=== PATIENT | male | born 1990 | race Caucasian/White ===

== ENCOUNTER 2020-04-27 15:47 | Emergency (ER) | payer BC, OTHER ==
[~2020-04-27] VITALS: Ht 170.2 cm; Wt 70.8 kg
--- NOTE | 2020-04-27 15:55 | NUR ---
CAME IN FOR LOWER BACK PAIN x 1WEEK S/P LIFTING HEAVY BOX AT WORK. TO ER BED 10, HOOKED TO MONITOR, CHANGED TO [facility]. AWAITING MD MUNOZ
[2020-04-27] MEDS ORDERED: IBUP-1957 PO (16:11)
[2020-04-27] MEDS ORDERED: METH-647 PO (16:11)
--- NOTE | 2020-04-27 16:20 | NUR ---
workers comp provided by patient, filled up by .
--- NOTE | 2020-04-27 16:23 | NUR ---
Patient discharged to home in stable condition. Written and verbal after care instructions given. Patient verbalizes understanding of instruction.
[2020-04-27 16:24] VITALS: BP 130/82
== END 2020-04-27 16:25 | disposition home or self-care (01) ==
LOC: ER 15:56
DX: S29.012A Strain of muscle and tendon of back wall of thorax, initial encounter (principal); X58.XXXA Exposure to other specified factors, initial encounter; Y93.89 Activity, other specified; Y92.89 Other specified places as the place of occurrence of the external cause; Y99.8 Other external cause status

== ENCOUNTER 2020-08-15 18:47 | Emergency (ER) | payer OTHER ==
[~2020-08-15] VITALS: Ht 177.8 cm; Wt 74.8 kg
[~2020-08-15 18:47] MED LIST: IBUP-1957 PO; METH-647 PO
[2020-08-15 18:58] VITALS: BP 132/68
--- NOTE | 2020-08-15 19:02 | NUR ---
The patient presented to ER for c/o sorethroat since friday. Denies chills/fever. Respiration regular and unlabored. Will continue to monitor the patient.
[2020-08-15] MEDS ORDERED: ACET-2605 PO (19:23)
[2020-08-15] MEDS ORDERED: AMOX500T2 PO (19:23)
[2020-08-15] MEDS ORDERED: DEXAMETHASONE SOD PHOSPHATE 10 MG/ML VIAL ONE (19:26)
[2020-08-15] MEDS ORDERED: DEXAMETHASONE SOD PHOSPHATE 4 MG/ML VIAL IM ONE (19:30)
[2020-08-15] MEDS ORDERED: AMOX-430 PO (19:35)
== END 2020-08-15 19:36 | disposition home or self-care (01) ==
LOC: ER 18:50
DX: J03.90 Acute tonsillitis, unspecified (principal); Z79.899 Other long term (current) drug therapy
CPT/HCPCS: 96372; 99283; J1100

== ENCOUNTER 2020-09-04 21:10 | Emergency (ER) | payer OTHER ==
[~2020-09-04] VITALS: Ht 177.8 cm; Wt 72.6 kg
[~2020-09-04 21:10] MED LIST changes: +ACET-2605 PO; +AMOX-430 PO
[2020-09-04] MEDS ORDERED: IV NS 0.9% 1,000 ML BAG IV ONE (21:30)
[2020-09-04] MEDS ORDERED: IBUPROFEN 600 MG TABLET PO ONE (21:30)
[2020-09-04] MEDS ORDERED: ONDANSETRON HCL/PF 4 MG/2 ML VIAL IVP ONE (21:30)
[2020-09-04] MEDS ORDERED: ONDANSETRON HCL/PF 4 MG/2 ML VIAL ONE (21:32)
[2020-09-04] MEDS ORDERED: IBUPROFEN 600 MG TABLET ONE (21:32)
[2020-09-04 21:52] LABS: BASOPHILS % (AUTO) 0.1 % (0.0-2.0); HEMATOCRIT 45 % (39-51); HEMOGLOBIN 15.6 g/dL (13.5-17.5); LYMPHOCYTES # (AUTO) 0.7 K/uL (0.8-4.8); LYMPHOCYTES % (AUTO) 7.8 % (20.0-44.0); MEAN CORPUSCULAR HGB CONC 34 g/dl (31.0-36.0); MEAN CORPUSCULAR VOLUME 88 fL (80-96); MONOCYTES # (AUTO) 0.5 K/uL (0.1-1.30); MONOCYTES % (AUTO) 5.2 % (2.0-12.0); NEUTROPHILS # (AUTO) 7.7 K/uL (1.8-8.9); NEUTROPHILS % (AUTO) 86.9 % (43.0-81.0); PLATELET COUNT (AUTO) 160 K/uL (150-450); RED BLOOD CELL COUNT(AUTO) 5.17 MIL/uL (4.5-6.0); WHITE BLOOD COUNT (AUTO) 8.8 K/uL (4.3-11.0)
--- NOTE | 2020-09-04 21:52 | NUR ---
BIBS FROM HOME TO ER BED 7. AAOX4. NOT IN RESP DISTRESS. AMBULATORY. CAME IN FOR DIZZYNESS, NAUSEA, VOMMITNG AND DIARRHEA TODAY. PT NOTED TACHYCARDIC AT 110. ORAL TEMP AT 99.9. MD WAS AT THE BEDSIDE FOR EVAL.
[2020-09-04 21:53] LABS: BILIRUBIN,URINE NEGATIVE (NEGATIVE); COLOR,URINE YELLOW (YELLOW); LEUKOCYTE ESTERASE ,URINE NEGATIVE (NEGATIVE); NITRITE, URINE NEGATIVE (NEGATIVE); PROTEIN,URINE NEGATIVE (NEGATIVE); UGLUCOSE NEGATIVE (NEGATIVE); UROBILINOGEN,URINE 0.2 EU/dL (0.2)
[2020-09-04 21:58] LABS: BACTERIA,URINE Few /HPF (None Seen); RBC,URINE 21-50 /HPF (0-2); SQUAMOUS EPITHELIAL CELL,UR Few /HPF (None Seen); WBC,URINE 0-2 /HPF (0-3)
[2020-09-04 22:04] LABS: CALCIUM, SERUM 8.4 mg/dL (8.5-10.1); CREATININE 1.1 mg/dL (0.6-1.3); POTASSIUM 3.3 mmol/L (3.5-5.1)
[2020-09-04 22:09] LABS: ALBUMIN 3.9 g/dL (3.4-5.0); BILIRUBIN,DIRECT 0.2 mg/dL (0.0-0.2)
[2020-09-04] MEDS ORDERED: POTASSIUM CHLORIDE 20 MEQ TAB.PRT.SR PO ONE ×2 (23:24→23:30)
--- NOTE | 2020-09-04 23:30 | NUR ---
PT TO CT ON DWIGHT
[2020-09-04] MEDS ORDERED: ONDA4TAB5 PO (23:50)
--- NOTE | 2020-09-05 00:19 | NUR ---
PT IS MEDICALLY STABLE FOR D/C, IV removed. Catheter intact and site benign. Pressure and 4x4 applied to site. No bleeding noted.Patient discharged to home in stable condition. Rx and Written and verbal after care instructions given. Patient verbalizes understanding of instruction.
[2020-09-05 00:22] VITALS: BP 119/72
== END 2020-09-05 00:23 | disposition home or self-care (01) ==
LOC: ER 21:10
DX: A08.4 Viral intestinal infection, unspecified (principal); R05 Cough; R50.9 Fever, unspecified; Z20.822 Contact with and (suspected) exposure to COVID-19; E87.6 Hypokalemia; R00.0 Tachycardia, unspecified; R31.9 Hematuria, unspecified; R91.8 Other nonspecific abnormal finding of lung field
CPT/HCPCS: 36415; 71045; 71046; 80048; 80076; 81001; 83690; 85025; 87426; 87804; 96374; 99284; C9803 ×2; J2405; J7030; U0003